=== PATIENT | male | born 1995 | race Caucasian/White ===

== ENCOUNTER 2024-07-31 12:46 | Inpatient (IN) | payer OTHER ==
[~2024-07-31] VITALS: Ht 180.3 cm; Wt 83.0 kg
[2024-07-31] MEDS: PEG 3350/NA SULF,BICARB,CL/KCL 4000 ML SOLUTION PO ONE (14:14)
[2024-07-31] MEDS: SODIUM PHOSPHATE,MONO-DIBASIC 133 ML ENEMA PR ONE (14:20)
[2024-07-31] MEDS ORDERED: ONDANSETRON HCL 4 MG/2 ML VIAL IVP PRN (15:45)
[2024-07-31] MEDS ORDERED: MAGNESIUM HYDROXIDE SUSPENSION 30 ML UDCUP PO PRN (15:45)
[2024-07-31] MEDS: SODIUM CHLORIDE 0.9% 1,000 ML IV ONE (15:50)
[2024-07-31 18:38] VITALS: BP 109/70; PULSE 76; RESP 18; O2SAT 94
[2024-07-31 21:07] VITALS: BP 120/64; PULSE 76; RESP 18; TEMP 98.5; O2SAT 98
[2024-07-31] MEDS: FAMOTIDINE 20 MG TABLET PO SCH (21:12)
[2024-08-01] MEDS: ACETAMINOPHEN 325 MG TABLET PO PRN (04:23)
[2024-08-01 04:24] VITALS: BP 116/63; PULSE 85; RESP 18; TEMP 97.3; O2SAT 97
[2024-08-01 08:39] LABS: BASOPHILS % (AUTO) 0.6 % (0.0-2.0); EOSINOPHILS % (AUTO) 3.5 % (1.0-6.0); HEMATOCRIT 45.3 % (41-53); HEMOGLOBIN 15.5 g/dL (13.5-17.5); LYMPHOCYTES # (AUTO) 1.8 K/uL (1.0-4.8); LYMPHOCYTES % (AUTO) 27.2 % (22.0-44.0); MEAN CORPUSCULAR HEMOGLOBIN 29.2 pg (26.0-34.0); MEAN CORPUSCULAR HGB CONC 34.1 G/dL (31.0-37.0); MEAN CORPUSCULAR VOLUME 85 fL (80-100); MONOCYTES # (AUTO) 0.8 K/uL (0.1-1.0); MONOCYTES % (AUTO) 12.1 % (2.0-9.0); NEUTROPHILS # (AUTO) 3.8 K/uL (1.8-7.7); NEUTROPHILS % (AUTO) 56.6 % (40.0-70.0); PLATELET COUNT (AUTO) 271 K/uL (150-450); RED BLOOD CELL COUNT(AUTO) 5.31 MIL/uL (4.50-5.90); WHITE BLOOD COUNT (AUTO) 6.7 K/uL (4.5-11.0)
[2024-08-01 08:55] LABS: ANION GAP 10 mmol/L (8-16); CALCIUM, TOTAL 8.9 mg/dL (8.8-10.5); CARBON DIOXIDE 25 mmol/L (22-29); CHLORIDE 106 mmol/L (98-107); CREATININE 0.83 mg/dL (0.60-1.30); GLOMERULAR FILTR. RATE CALC > 60 mL/min (>60); GLUCOSE,RANDOM 91 mg/dL (70-110); POTASSIUM 3.8 mmol/L (3.5-5.1); SODIUM SERUM 141 mmol/L (136-145); UREA NITROGEN, BLOOD 15 mg/dL (7-18)
[2024-08-01 09:23] VITALS: BP 109/71; PULSE 71; RESP 18; TEMP 97.4; O2SAT 96
[2024-08-01 16:18] VITALS: BP 114/59; PULSE 87; RESP 18; TEMP 97.9; O2SAT 98
[2024-08-01 17:31] LABS: GLUCOMETER DEV NAME(LOC) 5N.1D; GLUCOSE,POINT OF CARE 140 MG/DL (70-110)
[2024-08-01 20:03] VITALS: BP 122/54; PULSE 96; RESP 15; TEMP 98.1; O2SAT 96
[2024-08-01] MEDS: ZOLPIDEM TARTRATE 5 MG TABLET PO PRN (22:30)
[2024-08-02 00:24] VITALS: BP 119/78; PULSE 61; RESP 16; TEMP 97.8; O2SAT 95
[2024-08-02 04:33] VITALS: BP 117/75; PULSE 63; RESP 16; TEMP 98.1; O2SAT 96
[2024-08-02] MEDS: DIAZEPAM 5 MG TABLET PO ONE (08:00)
[2024-08-02 08:12] LABS: BASOPHILS % (AUTO) 0.6 % (0.0-2.0); EOSINOPHILS % (AUTO) 2.3 % (1.0-6.0); HEMATOCRIT 44.9 % (41-53); HEMOGLOBIN 15.3 g/dL (13.5-17.5); LYMPHOCYTES # (AUTO) 1.8 K/uL (1.0-4.8); LYMPHOCYTES % (AUTO) 30.8 % (22.0-44.0); MEAN CORPUSCULAR HEMOGLOBIN 29.1 pg (26.0-34.0); MEAN CORPUSCULAR VOLUME 85 fL (80-100); MONOCYTES # (AUTO) 0.6 K/uL (0.1-1.0); MONOCYTES % (AUTO) 10.1 % (2.0-9.0); NEUTROPHILS # (AUTO) 3.3 K/uL (1.8-7.7); NEUTROPHILS % (AUTO) 56.2 % (40.0-70.0); PLATELET COUNT (AUTO) 243 K/uL (150-450); RED BLOOD CELL COUNT(AUTO) 5.25 MIL/uL (4.50-5.90); RED CELL DISTRIBUTION WIDTH 13.1 % (11.5-14.5); WHITE BLOOD COUNT (AUTO) 5.8 K/uL (4.5-11.0)
[2024-08-02 08:21] LABS: ANION GAP 11 mmol/L (8-16); CARBON DIOXIDE 27 mmol/L (22-29); CHLORIDE 107 mmol/L (98-107); CREATININE 0.76 mg/dL (0.60-1.30); GLOMERULAR FILTR. RATE CALC > 60 mL/min (>60); GLUCOSE,RANDOM 90 mg/dL (70-110); POTASSIUM 3.5 mmol/L (3.5-5.1); SODIUM SERUM 145 mmol/L (136-145); UREA NITROGEN, BLOOD 10 mg/dL (7-18)
[2024-08-02 08:42] VITALS: BP 120/87; PULSE 68; RESP 17; TEMP 98.2; O2SAT 94
[2024-08-02] MEDS: BUPRENORPHINE HCL/NALOXONE HCL 2-0.5 MG SUBLINGUAL TABLET SL SCH (12:08)
[2024-08-02] MEDS ORDERED: FAMO20 PO (12:39)
[2024-08-02] MEDS ORDERED: BUPR1TAB45 SL (12:39)
[2024-08-02] MEDS ORDERED: ACET650S24 PR (12:41)
[2024-08-02] MEDS ORDERED: MAGN-169 PO (12:42)
[2024-08-02 20:31] VITALS: BP 110/60; PULSE 60; RESP 20; TEMP 97.7; O2SAT 96
[2024-08-03 04:27] VITALS: BP 99/60; PULSE 56; RESP 19; TEMP 97.4; O2SAT 97
== END 2024-08-03 04:54 | DRG 394 ==
LOC: EMS 12:54 → EDH 15:43 → 5S 18:30 → 6N 08-02 20:30
PROVIDERS: ADMIT Internal Medicine; ATTEND Internal Medicine
DX: T18.5XXA Foreign body in anus and rectum, initial encounter (principal); F15.13 Other stimulant abuse with withdrawal; F41.9 Anxiety disorder, unspecified; W44.8XXA Other foreign body entering into or through a natural orifice, initial encounter; Z53.20 Procedure and treatment not carried out because of patient's decision for unspecified reasons; Z79.899 Other long term (current) drug therapy; Y93.89 Activity, other specified; Y92.89 Other specified places as the place of occurrence of the external cause; Y99.8 Other external cause status
CPT/HCPCS: 74176; 80048; 82962; 85025; 96374; 99285